=== PATIENT | male | born 1970 | race Caucasian/White ===

== ENCOUNTER 2017-08-06 08:09 | Outpatient (CLI) | payer OTHER ==
[2017-08-06 08:58] LABS: Hematocrit 45.7 % (42.0-52.0); Mean Platelet Volume 6.7 fL (7.4-10.4); Red Blood Cell (RBC) Count 4.75 mill/uL (4.70-6.10); White Blood Cell (WBC) Count 5.1 thou/uL (4.8-10.8)
[2017-08-06 09:24] LABS: Anion Gap 5 mmol/L (10-20); BUN (Urea Nitrogen) 11 mg/dL (8.9-20.6); Calc. Creatinine Clearance 0 mL/min (70-130); Calcium 9.3 mg/dL (7.8-10.44); Carbon Dioxide 27 mmol/L (22-29); Chloride 112 mmol/L (98-107); Estimated GFR-MDRD 75
== END 2017-08-06 08:10 | disposition home or self-care (01) ==
LOC: LABBT 08:09
PROVIDERS: ATTEND Podiatrist Foot & Ankle Surgery
DX: Z01.812 Encounter for preprocedural laboratory examination (principal); M21.611 Bunion of right foot
CPT/HCPCS: 80048; 85027

== ENCOUNTER 2017-08-12 11:50 | Day surgery (SDC) | payer OTHER ==
[2017-08-06 08:24] VITALS: BMI 29.9
[2017-08-12] MEDS ORDERED: Bupivacaine PF 0.5% 30 ML VIAL ONE (12:33)
[2017-08-12] MEDS ORDERED: Neomycin-Polymyxin 1 ML AMP ONE (12:33)
[2017-08-12] MEDS ORDERED: Midazolam HCl 2 mg/2 ml Vial ONE (12:50)
[2017-08-12] MEDS ORDERED: CEFAZOLIN/Water 2 GM/20 ML SYRINGE ONE (12:50)
[2017-08-12] MEDS ORDERED: Fentanyl 100 MCG/2 ML VIAL ONE ×2 (12:56→14:45)
[2017-08-12] MEDS ORDERED: Ondansetron HCl/PF 4 MG/2 ML Vial ONE (15:26)
[2017-08-12] MEDS ORDERED: Dexamethasone 20 MG/5 ML VIAL ONE (15:26)
[2017-08-12] MEDS ORDERED: Propofol 200 MG/20 ML VIAL ONE (15:26)
[2017-08-12] MEDS ORDERED: Ketorolac Tromethamine 30 MG/ML VIAL ONE (15:26)
[2017-08-12] MEDS ORDERED: Lidocaine 1% PF 5 ML VIAL ONE (15:26)
[2017-08-12] MEDS ORDERED: HYDROcodone/Acetaminophen 5/325 mg Tablet ONE (15:29)
--- NOTE | 2017-08-12 15:58 | RAD ---
RIGHT FOOT TWO VIEW 08/12/17 HISTORY: Surgery. COMPARISON: None. FINDINGS: There is a compression screw through the second digit as well as through the great toe metatarsal hea d and neck. IMPRESSION: Satisfactory appearance postsurgical findings. POS: OFF
--- NOTE | 2017-08-12 19:40 | OP ---
DATE OF PROCEDURE: 08/12/2017 SURGEON: Amanda Jason DPM. PREOPERATIVE DIAGNOSES: Bunion, right foot; hammertoes two through four, right foot; pain, right erika t. POSTOPERATIVE DIAGNOSES: Bunion, right foot; hammertoes two through four, right foot; pain, right fo ot. PROCEDURES PERFORMED: Maximino bunionectomy, right foot; arthrodesis proximal interphalangeal joint, s econd digit, right foot; flexor tendon release to the digits 3 and 4, right foot. ANESTHESIA: General with local foot block. HEMOSTASIS: Pneumatic ankle tourniquet at 250 mmHg. ESTIMATED BLOOD LOSS: Less than 5 mL MATERIALS: 2-0 Vicryl, 4-0 Vicryl and 3-0 and 4-0 Prolene. Two 3.0 Synthes headless cannulated scre ws. INJECTABLES: 20 mL of 0.5% Marcaine plain. DESCRIPTION OF PROCEDURE: The patient was brought into the operating room and placed on the operatin g table in supine position, well-padded pneumatic ankle tourniquet was placed on the patient's right ankle. Following administration of IV anesthesia, local foot block was given utilizing 20 mL of 0.5% Marcaine plain. The foot was then scrubbed, prepped and draped in usual aseptic manner. Esmarch ba ndage was used to exsanguinate the patient's right foot and the pneumatic ankle tourniquet was then i nflated to 250 mmHg, which provided adequate hemostasis throughout the entire procedure. Next, atten tion was then directed to the dorsal aspect of the patient's first metatarsal phalangeal joint where a 5 cm linear longitudinal incision was made dorsally over the first metatarsal. The incision was de epened through subcuticular structures with care being taken to retract all vital neurovascular struc tures. All bleeders were cauterized as necessary. Next, a T-type capsulotomy was performed exposing the head of the first metatarsal as well as the base of the proximal phalanx. The medial bony promi nence was then carefully resected and passed from the operative field. Next, a Chevron type osteotom y was performed shifting the head into a more corrected lateral position and it was held in place wit h temporary fixation of a K-wire. Through the first interspace, the adductor tendon was then careful ly released from its attachment at the base of the proximal phalanx. Next, utilizing techniques and principles of [employer], a 3.0 headless cannulated screw was placed across the osteotomy site f rom dorsal proximal to plantar distal, it is held in place. Fluoroscopy was used to assure proper al ignment and correction, all were noted to be correct at this time. The wound was irrigated with copi ous amounts of sterile normal saline and mixture after resecting the remaining medial bone shaft. The capsular structures were then reapproximated and coapted with 2-0 Vicryl, and the subcuticular a nd skin was closed with 4-0 Vicryl and 3-0 Prolene correspondingly. Next, attention was then directe d to the dorsal aspect of the proximal interphalangeal joint of the second digit where a horizontal i ncision was made over the joint. Upon adequate exposure of the tendon, a transverse tenotomy was per formed exposing the head of the proximal phalanx and base of the intermediate phalanx. Both were res ected and passed from the operative field utilizing a sagittal bone saw. Same techniques were used _ ____ 3.0 x 40 mm headless cannulated screw was placed across the second digit through a stab incision and through the distal aspect of the toe. The wound was irrigated with copious amounts of sterile n ormal saline and mixture and the tendon was then reapproximated and coapted utilizing 4-0 Vicryl a nd skin was closed utilizing 4-0 Prolene in a simple interrupted suture technique. Next, attention w as then directed to the plantar aspect of the proximal interphalangeal joint where a stab incision wa s made and the flexor tendon was then carefully released to both digits. The wounds were irrigated w ith copious amounts of sterile normal saline and mixture, and the skin was closed utilizing 4-0 Pr olene in a simple interrupted suture technique. Next, a light compressive dressing was placed on all digits and the pneumatic ankle tourniquet was released with prompt hyperemic response noted to all d igits of the right foot. DISCHARGE SUMMARY: The patient tolerated the procedure and anesthesia, and was transferred to the re covery room with vital signs stable and vascular status intact to all digits of the right foot. Foll owing a period of postoperative monitoring, the patient is to be discharged home and advised to call should he have any problems prior to the first postoperative appointment. Should he have any problem s, he will be seen as soon as possible.
== END 2017-08-12 16:30 | disposition home or self-care (01) ==
LOC: SDC 11:50
PROVIDERS: ATTEND Podiatrist Foot & Ankle Surgery
PROC: 0SGM0ZZ (ICD-10-PCS; principal; 2017-08-12)
PROC: 0SGP0ZZ (ICD-10-PCS; principal; 2017-08-12)
DX: M21.611 Bunion of right foot (principal); M20.41 Other hammer toe(s) (acquired), right foot
CPT/HCPCS: 76001; 96374; C1713; G8978-GP-CI; G8979-GP-CI; G8980-GP-CI; J1100; J1885; J2001; J2250; J2405; J2704; J3010; S0020

== ENCOUNTER 2021-05-21 08:31 | Outpatient (CLI) | payer OTHER ==
[2021-05-21 20:13] LABS: SARS-CoV-2 PCR by NAA Not Detected (NotDetected)
== END 2021-05-21 08:32 | disposition home or self-care (01) ==
LOC: LABBT 08:31
PROVIDERS: ATTEND Internal Medicine Gastroenterology
DX: Z01.812 Encounter for preprocedural laboratory examination (principal); K21.9 Gastro-esophageal reflux disease without esophagitis; Z20.822 Contact with and (suspected) exposure to COVID-19
CPT/HCPCS: U0003; U0005

== ENCOUNTER 2021-05-24 06:31 | Day surgery (SDC) | payer OTHER ==
[2021-05-23 11:42] VITALS: BMI 29.9
[2021-05-24] MEDS ORDERED: Fentanyl 100 MCG/2 ML VIAL ONE (08:28)
[2021-05-24] MEDS ORDERED: PROPOFOL 200 MG/20 ML VIAL ONE (08:33)
== END 2021-05-24 10:15 | disposition home or self-care (01) ==
LOC: SDC 06:31
PROVIDERS: ATTEND Internal Medicine Gastroenterology
PROC: 0DBL8ZX Excision of Transverse Colon, Via Natural or Artificial Opening Endoscopic, Diagnostic (ICD-10-PCS; principal; 2021-05-24)
PROC: 0DB48ZX Excision of Esophagogastric Junction, Via Natural or Artificial Opening Endoscopic, Diagnostic (ICD-10-PCS; principal; 2021-05-24)
PROC: 0DB68ZX Excision of Stomach, Via Natural or Artificial Opening Endoscopic, Diagnostic (ICD-10-PCS; principal; 2021-05-24)
DX: D12.3 Benign neoplasm of transverse colon (principal); K31.89 Other diseases of stomach and duodenum; K21.00 Gastro-esophageal reflux disease with esophagitis, without bleeding; K64.9 Unspecified hemorrhoids; F17.200 Nicotine dependence, unspecified, uncomplicated; E78.5 Hyperlipidemia, unspecified; Z79.899 Other long term (current) drug therapy
CPT/HCPCS: J3010

== ENCOUNTER 2021-05-24 16:56 | Observation (INO) | payer OTHER ==
[2021-05-24] MEDS ORDERED: Lidocaine 1% PF 5 ML VIAL ONE (17:15)
[2021-05-24] MEDS ORDERED: Promethazine HCl 25 MG/ML VIAL ONE (18:53)
[2021-05-24] MEDS ORDERED: Ondansetron PF 4 MG/2 ML Vial IVP PRN (18:53)
[2021-05-24] MEDS ORDERED: Dexamethasone 4 mg/ml Vial ONE (18:58)
[2021-05-24 19:09] LABS: Hemoglobin 14.1 g/dL (14.0-18.0); Mean Corpuscular HGB CONC 36.8 g/dL (32.0-36.0); Mean Corpuscular Hemoglobin 34.8 pg (27.0-31.0); Mean Corpuscular Volume 94.5 fL (78.0-98.0); Red Blood Cell (RBC) Count 4.05 mill/uL (4.70-6.10); White Blood Cell (WBC) Count 11.2 thou/uL (4.8-10.8)
[2021-05-24 19:10] LABS: #Eosinphils 0.1 thou/uL (0.0-0.7); #Lymphocytes 1.5 thou/uL (1.20-3.40); #Monocytes 0.6 thou/uL (0.11-0.59); %Basophils 0.1 % (0.0-1.0); %Eosinophils 0.5 % (0.0-10.0); %Lymphocytes 13.8 % (21.0-51.0); %Neutrophils 80.7 % (42.0-75.0); Mean Platelet Volume 6.9 fL (7.4-10.4); Platelet Count 168 thou/uL (130-400); RBC Distribution Width 11.5 % (11.5-14.5)
[2021-05-24 19:42] LABS: Carbon Dioxide 23 mmol/L (22-29); Chloride 110 mmol/L (98-107); Potassium 3.7 mmol/L (3.5-5.1); Sodium 141 mmol/L (136-145)
[2021-05-24 19:43] LABS: ALT (SGPT) 21 U/L (8-55); AST (SGOT) 17 U/L (5-34); Albumin 3.6 g/dL (3.5-5.0); Alkaline Phosphatase 62 U/L (40-110); Anion Gap 12 mmol/L (10-20); BUN (Urea Nitrogen) 9 mg/dL (8.9-20.6); Calc. Creatinine Clearance 0 mL/min (70-130); Calcium 8.2 mg/dL (7.8-10.44); Globulin 2.1 g/dL (2.4-3.5); Glucose 131 mg/dL (70-105); Protein, Total 5.7 g/dL (6.0-8.3)
[2021-05-24] MEDS ORDERED: Morphine 2 MG/ML VIAL ONE (19:44)
[2021-05-24 19:45] LABS: Mean Corpuscular Volume 94.6 fL (78.0-98.0); Red Blood Cell (RBC) Count 4.45 mill/uL (4.70-6.10); White Blood Cell (WBC) Count 8.9 thou/uL (4.8-10.8)
[2021-05-24 19:46] LABS: #Neutrophils 7.4 thou/uL (1.40-6.50); %Basophils 0.5 % (0.0-1.0); %Eosinophils 0.9 % (0.0-10.0); %Lymphocytes 10.1 % (21.0-51.0); %Monocytes 4.7 % (0.0-10.0); %Neutrophils 83.8 % (42.0-75.0); Mean Corpuscular HGB CONC 35.7 g/dL (32.0-36.0); Mean Corpuscular Hemoglobin 33.7 pg (27.0-31.0); Mean Platelet Volume 7.8 fL (7.4-10.4); Platelet Count 148 thou/uL (130-400); RBC Distribution Width 11.7 % (11.5-14.5)
[2021-05-24 19:48] LABS: #Eosinphils 0.1 thou/uL (0.0-0.7); #Lymphocytes 0.9 thou/uL (1.20-3.40); #Monocytes 0.4 thou/uL (0.11-0.59)
[2021-05-24] MEDS: Potassium Chloride 30 MEQ in Sodium Chloride 0.9% 1,000 ML IV SCH (21:11)
[2021-05-25 06:18] VITALS: BMI 29.9
[2021-05-25] MEDS: Potassium Chloride 30 MEQ in Sodium Chloride 0.9% 1,000 ML IV SCH (07:26)
[2021-05-25 09:38] VITALS: BP 126/75; TEMP 98
[2021-05-25 11:13] LABS: Anion Gap 12 mmol/L (10-20); BUN (Urea Nitrogen) 8 mg/dL (8.9-20.6); Calc. Creatinine Clearance 134 mL/min (70-130); Calcium 8.3 mg/dL (7.8-10.44); Carbon Dioxide 22 mmol/L (22-29); Chloride 110 mmol/L (98-107); Glucose 125 mg/dL (70-105); Potassium 4.3 mmol/L (3.5-5.1); Sodium 140 mmol/L (136-145)
[2021-05-25 12:42] LABS: Hemoglobin 13.6 g/dL (14.0-18.0); Mean Corpuscular HGB CONC 35.8 g/dL (32.0-36.0); Mean Corpuscular Hemoglobin 33.7 pg (27.0-31.0); RBC Distribution Width 11.5 % (11.5-14.5); Red Blood Cell (RBC) Count 4.05 mill/uL (4.70-6.10); White Blood Cell (WBC) Count 8.8 thou/uL (4.8-10.8)
[2021-05-25 12:43] LABS: #Lymphocytes 0.6 thou/uL (1.20-3.40); #Monocytes 0.1 thou/uL (0.11-0.59); #Neutrophils 8.1 thou/uL (1.40-6.50); %Basophils 0.1 % (0.0-1.0); %Lymphocytes 6.3 % (21.0-51.0); %Monocytes 1.7 % (0.0-10.0); Mean Platelet Volume 7.5 fL (7.4-10.4); Platelet Count 159 thou/uL (130-400)
== END 2021-05-25 12:15 | disposition home or self-care (01) ==
LOC: SDC 16:56 → SURG B 20:30 → INTOOBSV 20:30
PROVIDERS: ADMIT Internal Medicine Gastroenterology; ATTEND Internal Medicine Gastroenterology
PROC: 0W3P8ZZ Control Bleeding in Gastrointestinal Tract, Via Natural or Artificial Opening Endoscopic (ICD-10-PCS; principal; 2021-05-24)
PROC: 0DB48ZX Excision of Esophagogastric Junction, Via Natural or Artificial Opening Endoscopic, Diagnostic (ICD-10-PCS; 2021-05-24)
PROC: 0DBL8ZX Excision of Transverse Colon, Via Natural or Artificial Opening Endoscopic, Diagnostic (ICD-10-PCS; 2021-05-24)
PROC: 0DB68ZX Excision of Stomach, Via Natural or Artificial Opening Endoscopic, Diagnostic (ICD-10-PCS; 2021-05-24)
DX: K91.840 Postprocedural hemorrhage of a digestive system organ or structure following a digestive system procedure (principal); K91.0 Vomiting following gastrointestinal surgery; K31.7 Polyp of stomach and duodenum; E78.5 Hyperlipidemia, unspecified; K21.9 Gastro-esophageal reflux disease without esophagitis; F17.200 Nicotine dependence, unspecified, uncomplicated; Z79.899 Other long term (current) drug therapy; D12.3 Benign neoplasm of transverse colon; K31.89 Other diseases of stomach and duodenum; K21.00 Gastro-esophageal reflux disease with esophagitis, without bleeding; K64.9 Unspecified hemorrhoids
CPT/HCPCS: 80048; 80053; 85025; 86850; 86900; 86901; J1100; J2270; J2550; J2704; J3010; J3480; J7050